=== PATIENT | female | born 1935 | race Caucasian/White ===

== ENCOUNTER → 2017-10-05 | Outpatient (CLI) | payer MEDICARE, OTHER ==
[~2017-10-05] MED LIST: ALBUTEROL0.83 MG/ML IH; AMITRIPTYLINE H10 M1 PO; AMITRIPTYLINE10 MG PO; AMITRIPTYLINE100 MG PO; ATARAX 25MG25 MG/TAB PO; BACTRIM DS 8001 TAB PO; BIAXIN PO; BROVANA15 MCG/2 M IH; CALCIUM500 MG PO; CEPHALEXIN500 M1 PO; COLACE 100100 MG/CAP PO; DIFLUCAN 100MG100 MG PO; DOMPERIDONE10 MG/CAP PO; ENTOCORT EC3 MG; FISH OIL1000 MG PO; FLONASE NASAL S16 GM NS; HYDROXYZINE HYD25 MG PO; HYDROXYZINE50 MG PO; ISOMETH/DICHLOR1 CAP PO; MULTIPLE VITAMI1 CAP PO; NEXIUM40 MG PO; NORCO 325 MG-51 TAB PO; NORVASC2.5 MG PO; PROAIR HFA0.09 MG/AC IH; PROAIR RES117 MCG/Ac IH; PROBIOTIC FORMU1 CAP PO; PROVENTIL0.09 MG/A1 IH; PULMICORT0.25 MG/2 IH; RHINOCORT0.032 MG/1 NS; SINGULAIR 110 MG/TAB PO; SINGULAIR10 MG PO; ULTRAM 50MG TAB50 MG PO; ULTRAM50 MG PO; XANAX .25M0.25 MG/TA PO; XANAX0.25 MG PO; ZANTAC 150MG T150 MG PO; ZOLOFT 25MG25 MG PO; ZOLOFT 50MG50 MG PO; ZOLOFT100 MG PO; [UNRECOGNIZED DRUG - SUPPLY]
== END ==
LOC: COL.PUL 13:08
DX: I08.1 Rheumatic disorders of both mitral and tricuspid valves (principal)

== ENCOUNTER → 2017-10-11 | Outpatient (CLI) | payer MEDICARE, OTHER | LOC: COL.PUL 11:06 | DX: R06.02 Shortness of breath (principal) ==

== ENCOUNTER 2019-02-16 15:01 | Outpatient (CLI) | payer MEDICARE, OTHER ==
[~2019-02-16] VITALS: Ht 157.5 cm; Wt 44.6 kg
[2019-02-16 15:22] VITALS: BP 134/70; PULSE 60; TEMP 98.2
[2019-02-16] MEDS ORDERED: NORVASC 5MG5 MG/TAB PO (15:36)
[2019-02-16] MEDS ORDERED: COZAAR100 MG PO (15:36)
[2019-02-16] MEDS ORDERED: MULTI VITAMINS1 TAB PO (15:38)
[2019-02-16] MEDS ORDERED: CALCIUM 600MG+D1 TAB PO (15:38)
[2019-02-16] MEDS ORDERED: CARDI-OMEGA1000 MG PO (15:39)
== END 2019-02-16 16:06 | disposition home or self-care (01) ==
LOC: EUO 15:01
DX: J44.9 Chronic obstructive pulmonary disease, unspecified (principal); Z79.899 Other long term (current) drug therapy
CPT/HCPCS: J0517

== ENCOUNTER 2019-03-16 14:34 | Outpatient (RCR) | payer MEDICARE, OTHER ==
[~2019-03-16] VITALS: Ht 157.5 cm; Wt 44.5 kg
[~2019-03-16 14:34] MED LIST changes: +CALCIUM 600MG+D1 TAB PO; +CARDI-OMEGA1000 MG PO; +COZAAR100 MG PO; +MULTI VITAMINS1 TAB PO; +NORVASC 5MG5 MG/TAB PO
[2019-03-16 14:59] VITALS: BP 104/77; PULSE 66; TEMP 98.1
[2019-03-16] MEDS ORDERED: PULMICORT0.5 MG/2 M IH (15:01)
[2019-03-16] MEDS ORDERED: FASENRA30 MG/1 ML SQ (15:08)
--- NOTE | 2019-03-16 15:30 | NUR ---
Pt selma heck. Pt discharged per ambulation.
== END 2019-03-16 16:01 | disposition home or self-care (01) ==
LOC: EUO 14:34
DX: J82 Pulmonary eosinophilia, not elsewhere classified (principal); Z79.899 Other long term (current) drug therapy
CPT/HCPCS: J0517

== ENCOUNTER 2019-05-11 14:34 | Outpatient (CLI) | payer MEDICARE, OTHER ==
[~2019-05-11] VITALS: Ht 157.5 cm; Wt 45.0 kg
[~2019-05-11 14:34] MED LIST changes: +FASENRA30 MG/1 ML SQ; +PULMICORT0.5 MG/2 M IH
[2019-05-11 15:00] VITALS: BP 118/63; PULSE 66; TEMP 98.3
== END 2019-05-11 15:12 | disposition home or self-care (01) ==
LOC: EUO 14:34
DX: J45.909 Unspecified asthma, uncomplicated (principal); D72.0 Genetic anomalies of leukocytes; Z79.899 Other long term (current) drug therapy
CPT/HCPCS: J0517

== ENCOUNTER 2019-07-06 14:31 | Outpatient (CLI) | payer MEDICARE, OTHER ==
[~2019-07-06] VITALS: Ht 157.5 cm; Wt 46.2 kg
[2019-07-06 14:53] VITALS: BP 119/69; PULSE 69; TEMP 98
== END 2019-07-06 17:44 | disposition home or self-care (01) ==
LOC: EUO 14:31
DX: J45.909 Unspecified asthma, uncomplicated (principal); D72.1 Eosinophilia; Z79.899 Other long term (current) drug therapy
CPT/HCPCS: J0517

== ENCOUNTER → 2019-08-31 | Outpatient (CLI) | payer MEDICARE, OTHER ==
[~2019-08-31] VITALS: Ht 157.5 cm; Wt 46.3 kg
[2019-08-31 14:46] VITALS: BP 132/67; PULSE 68; TEMP 98
== END ==
LOC: EUO 14:30
DX: J45.909 Unspecified asthma, uncomplicated (principal); D72.1 Eosinophilia; Z79.899 Other long term (current) drug therapy
CPT/HCPCS: J0517

== ENCOUNTER 2019-10-26 14:36 | Outpatient (CLI) | payer MEDICARE, OTHER ==
[~2019-10-26] VITALS: Ht 157.5 cm; Wt 46.9 kg
[2019-10-26 15:06] VITALS: BP 136/60; PULSE 69; TEMP 98.3
== END 2019-10-26 15:43 | disposition home or self-care (01) ==
LOC: EUO 14:36
DX: D72.1 Eosinophilia (principal); J45.909 Unspecified asthma, uncomplicated; Z79.899 Other long term (current) drug therapy
CPT/HCPCS: J0517

== ENCOUNTER 2019-12-21 14:39 | Outpatient (CLI) | payer MEDICARE, OTHER ==
[2019-12-21 15:17] VITALS: BP 104/50; PULSE 79; TEMP 97.9
== END 2019-12-21 18:03 | disposition home or self-care (01) ==
LOC: EUO 14:39
DX: J45.909 Unspecified asthma, uncomplicated (principal); D72.1 Eosinophilia; Z79.899 Other long term (current) drug therapy
CPT/HCPCS: J0517

== ENCOUNTER 2020-02-15 14:39 | Outpatient (CLI) | payer MEDICARE, OTHER ==
[~2020-02-15] VITALS: Ht 157.5 cm; Wt 48.3 kg
[2020-02-15 15:10] VITALS: BP 140/73; PULSE 64; TEMP 98.9
== END 2020-02-15 18:54 | disposition home or self-care (01) ==
LOC: EUO 14:39
DX: J44.9 Chronic obstructive pulmonary disease, unspecified (principal); Z79.899 Other long term (current) drug therapy
CPT/HCPCS: J0517

== ENCOUNTER 2020-04-11 15:03 | Outpatient (CLI) | payer MEDICARE, OTHER ==
[~2020-04-11] VITALS: Ht 157.5 cm; Wt 49.1 kg
[2020-04-11 15:17] VITALS: BP 151/69; PULSE 70; TEMP 98.6
== END 2020-04-16 15:21 | disposition home or self-care (01) ==
LOC: EUO 15:03
DX: J44.9 Chronic obstructive pulmonary disease, unspecified (principal); D72.19 Other eosinophilia; Z79.899 Other long term (current) drug therapy
CPT/HCPCS: J0517

== ENCOUNTER 2020-06-06 12:57 | Outpatient (CLI) | payer MEDICARE, OTHER ==
[2020-06-06 13:15] VITALS: BP 111/61; PULSE 67; TEMP 97.6
== END 2020-06-06 13:45 | disposition home or self-care (01) ==
LOC: EUO 12:57
DX: J44.9 Chronic obstructive pulmonary disease, unspecified (principal); D72.10 Eosinophilia, unspecified
CPT/HCPCS: J0517

== ENCOUNTER 2020-08-02 13:08 | Outpatient (CLI) | payer MEDICARE, OTHER ==
[~2020-08-02] VITALS: Ht 157.5 cm; Wt 48.0 kg
[2020-08-02 13:46] VITALS: BP 140/62; PULSE 65; TEMP 98.6
== END 2020-08-02 17:12 | disposition home or self-care (01) ==
LOC: EUO 13:08
DX: J44.9 Chronic obstructive pulmonary disease, unspecified (principal); D72.10 Eosinophilia, unspecified; Z79.899 Other long term (current) drug therapy
CPT/HCPCS: J0517

== ENCOUNTER 2020-09-27 13:02 | Outpatient (CLI) | payer MEDICARE, OTHER ==
[~2020-09-27] VITALS: Ht 157.5 cm; Wt 48.9 kg
[~2020-09-27 13:02] MED LIST changes: +DUO-KAPS1 CAP PO; -MULTI VITAMINS1 TAB PO
[2020-09-27 13:12] VITALS: BP 145/669; PULSE 69; TEMP 98.6
== END 2020-09-27 13:26 | disposition home or self-care (01) ==
LOC: EUO 13:02
DX: J44.9 Chronic obstructive pulmonary disease, unspecified (principal); Z79.899 Other long term (current) drug therapy
CPT/HCPCS: J0517

== ENCOUNTER 2020-11-22 13:05 | Outpatient (CLI) | payer MEDICARE, OTHER ==
[~2020-11-22] VITALS: Ht 157.5 cm; Wt 45.5 kg
[2020-11-22 13:17] VITALS: BP 117/66; PULSE 71; TEMP 98.5
== END 2020-11-22 13:47 | disposition home or self-care (01) ==
LOC: EUO 13:05
DX: J44.9 Chronic obstructive pulmonary disease, unspecified (principal); Z79.899 Other long term (current) drug therapy
CPT/HCPCS: J0517

== ENCOUNTER → 2020-12-25 | Outpatient (CLI) | payer MEDICARE, OTHER ==
[~2020-12-25] MED LIST changes: +AFRIN 15 ML15 ML NS; +FLONASEALLERGY NS; +ZYRTEC 10MG10 MG PO
== END ==
LOC: COL.RAD 11:23
DX: Z01.812 Encounter for preprocedural laboratory examination (principal); R06.02 Shortness of breath
CPT/HCPCS: Q9967

== ENCOUNTER 2021-01-17 13:10 | Outpatient (CLI) | payer MEDICARE, OTHER ==
[~2021-01-17] VITALS: Ht 157.5 cm; Wt 47.8 kg
[~2021-01-17 13:10] MED LIST changes: -AFRIN 15 ML15 ML NS; -FLONASEALLERGY NS; -ZYRTEC 10MG10 MG PO
[2021-01-17 13:39] VITALS: BP 120/63; PULSE 75; TEMP 98.5
== END 2021-01-17 13:41 | disposition home or self-care (01) ==
LOC: EUO 13:10
DX: J44.9 Chronic obstructive pulmonary disease, unspecified (principal)
CPT/HCPCS: J0517

== ENCOUNTER 2021-03-14 13:14 | Outpatient (CLI) | payer MEDICARE, OTHER ==
[~2021-03-14] VITALS: Ht 157.5 cm; Wt 46.2 kg
[2021-03-14 13:37] VITALS: BP 112/61; PULSE 66; TEMP 98.5
[2021-03-14] MEDS ORDERED: FLONASEALLERGY NS (13:46)
[2021-03-14] MEDS ORDERED: ZYRTEC 10MG10 MG PO (13:46)
[2021-03-14] MEDS ORDERED: AFRIN 15 ML15 ML NS (13:46)
== END 2021-03-14 15:12 | disposition home or self-care (01) ==
LOC: EUO 13:14
DX: J44.9 Chronic obstructive pulmonary disease, unspecified (principal); Z79.899 Other long term (current) drug therapy
CPT/HCPCS: J0517

== ENCOUNTER 2021-05-01 13:08 | Outpatient (CLI) | payer MEDICARE, OTHER ==
[~2021-05-01] VITALS: Ht 157.5 cm; Wt 46.4 kg
[~2021-05-01 13:08] MED LIST changes: +AFRIN 15 ML15 ML NS; +FLONASEALLERGY NS; +ZYRTEC 10MG10 MG PO
[2021-05-01 13:38] VITALS: BP 136/57; PULSE 69; TEMP 98.8
== END 2021-05-01 16:34 | disposition home or self-care (01) ==
LOC: EUO 13:08
DX: J44.9 Chronic obstructive pulmonary disease, unspecified (principal)
CPT/HCPCS: J0517

== ENCOUNTER → 2021-12-24 | Outpatient (CLI) | payer MEDICARE, OTHER ==
[~2021-12-24] VITALS: Ht 157.5 cm; Wt 44.7 kg
== END ==
LOC: EUO 14:00
DX: J44.9 Chronic obstructive pulmonary disease, unspecified (principal)
CPT/HCPCS: J0517

== ENCOUNTER 2022-02-18 14:05 | Outpatient (CLI) | payer MEDICARE, OTHER ==
[~2022-02-18] VITALS: Ht 157.5 cm; Wt 45.3 kg
[2022-02-18 14:49] VITALS: BP 143/57; PULSE 70; TEMP 99.8
== END 2022-02-18 14:49 ==
LOC: EUO 14:05
DX: J44.9 Chronic obstructive pulmonary disease, unspecified (principal)
CPT/HCPCS: J0517

== ENCOUNTER 2022-04-15 14:06 | Outpatient (CLI) | payer MEDICARE, OTHER ==
[~2022-04-15] VITALS: Ht 157.5 cm; Wt 47.4 kg
[2022-04-15 14:22] VITALS: BP 188/85; PULSE 67; TEMP 98.4
[2022-04-15] MEDS ORDERED: SYNTHROID 0.0.025 MG PO (14:39)
== END 2022-04-15 14:40 ==
LOC: EUO 14:06
DX: J44.9 Chronic obstructive pulmonary disease, unspecified (principal)
CPT/HCPCS: J0517